=== PATIENT | female | born 1985 | race Caucasian/White ===

== ENCOUNTER 2024-07-09 14:57 | Emergency (ER) | payer BC, SELFPAY ==
[2024-07-09 15:00] VITALS: BP 113/82
--- NOTE | 2024-07-09 15:51 | ED.GENMED ---
History of Present Illness
General
Chief Complaint: Skin Problem
Time Seen by Provider: 07/09/24 15:31
History of Present Illness
History of Present Illness:
39 yo female presents to the Emergency Dept for evaluation of scalp skin lesions ongoing for the past several days, associated with newly developed adenopathy to the posterior ears and upper neck. No fevers. Reports a hx of scalp 'psoriasis'.
Past History
Past History
ED Past Medical History: None, Other and Other
ED Past Surgical History: None, Tonsilectomy and Other
Social History
Tobacco: Former smoker
Personal: Single
Living: with family
Employment: Employed
Review of Systems
Review of Systems
Allergies reviewed?: Yes
All Other Systems: ROS reviewed and negative except as documented in HPI and ROS
Phy Exam
Physical Exam
Physical Exam:
GEN: Well appearing, NAD, WDWN
HEENT: Oral mucosa moist, no scleral icterus. Numerous crusted/erythematous skin lesions to bilateral parietal and occipital scalp. Bilateral post auricular and posterior cervical chain adenopathy
Cardiac: Regular rate
Lung: No respiratory distress, no tachypnea
MSK: No gross deformity or injuries
Skin: Good color, no pallor or jaundice, no rashes
Neuro: AO x3, moves all extremities freely
Psych: Calm, cooperative
Course
Vital Signs
Initial and Last Documented VS:
Initial Vital Signs
Temp Pulse Resp BP Pulse Ox
98.3 F 95 18 113/82 99
07/09/24 15:00 07/09/24 15:00 07/09/24 15:00 07/09/24 15:00 07/09/24 15:00
Last Documented Vital Signs
Temp Pulse Resp BP Pulse Ox
98.3 F 95 18 113/82 99
07/09/24 15:00 07/09/24 15:00 07/09/24 15:00 07/09/24 15:00 07/09/24 15:00
MDM/Problems Addressed
MDM/Problems Addressed:
Likely co-infected seborrheic dermatitis. Will start PO abx and topical antifungals
*Critical Care Note
Total Time (30-74mins, 75-104mins- exclusive of procedures): Not Applicable
ED Attending Note
-
Portions of this chart may have been created with voice recognition software.� Occasional wrong word or��sound alike� substitutions may have occurred due to the inherent limitations of voice recognition software.
Discharge Plan
Departure
Patient Disposition: Home (Routine Discharge)
Date of Disposition: 07/09/24
Time of Disposition: 15:53
Patient with high blood pressure during this ER visit?: No
Discharge Problem:
Cellulitis of head or scalp, Acute seborrheic dermatitis
Instructions: Seborrheic dermatitis, Cellulitis (Skin Infection), Adult (DC)
Prescriptions:
New
doxycycline monohydrate 100 mg capsule
100 mg PO BID 7 Days Qty: 14 0RF
ketoconazole 2 % shampoo
1 applic topical DAILY Qty: 120 0RF
No Action
vitamin A 2,400 mcg Capsule
1 unit PO DAILY
clonazepam 0.5 mg tablet
0.25 mg PO DAILYPRN PRN (Reason: anxiety)
clonazepam 0.5 mg tablet
0.5 mg PO HS
zinc sulfate 50 mg zinc (220 mg) Tablet
50 mg PO DAILY
naproxen sodium [Aleve] 220 mg Tablet
440 mg PO BID PRN (Reason: mild pain)
buprenorphine-naloxone 8-2 mg film
0.5 film buccal TIDPRN PRN (Reason: severe pain)
Eliquis 2.5 mg tablet
2.5 mg PO .SEE BELOW
Patient Comments:
Has not started 2.5 mg BID regimen.
doxycycline hyclate 100 mg tablet
100 mg PO BID Qty: 14 0RF
prednisone 10 mg tablet
10 mg PO DIRECTED Qty: 30 0RF
Rx Instructions:
4 tabs daily x 3 days; 3 tabs daily for 3 days; 2 tabs daily for 3 days; 1 tab daily for 3 days
Referrals:
Nuris Zavaleta CRNP [Family Provider] -
Interventions
Interventions:
*Risk Screen - Suicide Last Done: 07/09/24 15:00
*General Assessment Last Done: 07/09/24 15:00
*Neglect/Abuse Screening Last Done: 07/09/24 15:00
*Nursing Disposition Last Done: 07/09/24 16:01
Discharge Date and Time
Discharge Date/Time: 07/09/24 16:02
Print Language: NORWEGI[place]
== END 2024-07-09 16:02 | disposition home or self-care (01) ==
LOC: EMR 14:57
PROVIDERS: EMERGENCY PHYSICIAN Emergency Medicine; FAMILY PHYSICIAN Nurse Practitioner Adult Health
DX: L03.811 Cellulitis of head [any part, except face] (principal); L21.9 Seborrheic dermatitis, unspecified; Z87.891 Personal history of nicotine dependence
CPT/HCPCS: 99282

== ENCOUNTER 2025-02-24 13:34 | Emergency (ER) | payer BC, SELFPAY ==
[2025-02-24 14:17] LABS: % Basophils 0.6 % (0-2); % Eosinophils 0.8 % (0-6); % Immature Granulocytes 0.1 % (0-0.5); % Lymphocytes 18.1 % (20.5-51.1); % Monocytes 6.3 % (1.7-9.3); % Neutrophils 74.1 % (42.2-75.2); Absolute Eosinophils 0.1 10^3/uL (0-0.7); Absolute Lymphocytes 1.3 10^3/uL (1.2-3.4); Absolute Monocytes 0.5 10^3/uL (0.1-0.6); Absolute Neutrophils 5.3 10^3/uL (1.4-6.5); Hematocrit 38.4 % (37.0-47.0); Hemoglobin 13.2 g/dL (12.0-16.0); Mean Corp Hgb Conc. 34.4 g/dL (33.0-37.0); Mean Corpuscular Hgb 29.7 pg (27.0-31.0); Mean Corpuscular Volume 86.5 fL (81.0-99.0); Nucleated Red Blood Cells % 0 %; Red Blood Cell Count 4.44 10^6/uL (4.20-5.40); Red Cell Dist. Width 12.2 % (11.5-14.5); White Blood Cell Count 7.1 10^3/uL (4.8-10.8)
[2025-02-24 14:19] LABS: HCG, Serum Qualitative Screen Negative
[2025-02-24 14:20] LABS: INR 1.12; PT 14.7 Sec (11.4-14.6)
[2025-02-24 14:24] LABS: ALT (SGPT) 15 U/L (0-35); AST (SGOT) 24 U/L (14-36); Albumin 4.2 g/dl (3.5-5.0); Alkaline Phosphatase 46 U/L (38-126); Blood Urea Nitrogen 10 mg/dl (7-17); Calcium 9.1 mg/dl (8.4-10.2); Carbon Dioxide 24 mmol/L (22-30); Chloride 104 mmol/L (98-107); Glucose 88 mg/dl (70-99); Potassium 4.3 mmol/L (3.5-5.1); Sodium 137 mmol/L (135-145); Total Bilirubin 0.8 mg/dl (0.2-1.3); eGFR > 60.00
[2025-02-24 14:34] LABS: Troponin I < 0.012 ng/ml
[2025-02-24 14:53] LABS: TSH Reflex To Free T4 2.19 uIU/ml (0.47-4.68)
--- NOTE | 2025-02-24 15:32 | ED.GENMED ---
History of Present Illness
General
Chief Complaint: Chest Pain
Source: patient
Exam Limitations: none
Time Seen by Provider: 02/24/25 14:57
Nursing documentation reviewed up to this point in time: agreed with
History of Present Illness
History of Present Illness:
40-year-old female with past medical history of PE on Eliquis, lupus, Crohn's disease who presents to the emergency department for evaluation of palpitations, chest pain, shortness of breath. Patient reports symptoms have been intermittent for
months but she feels generally worsening. She is post to see Dr. Hines for cardiology appointment in April but feels that she cannot wait because of worsening symptoms. She reports that symptoms seem to be worse when she exerts herself but also can
happen randomly. Prominently describes palpitation with more of a chest discomfort and a feeling of breathlessness. She denies any cough, fevers, chills. Denies swelling or pain in her legs. She denies any other complaints. She does have a
history of PE and is supposed to be on Eliquis but reports that because of issues with insurance coverage she has been not compliant for 2 months.
Past History
Past History
ED Past Medical History: None, Other and Other
ED Past Surgical History: None, Tonsilectomy and Other
Social History
Tobacco: Former smoker
Personal: Single
Living: with family
Employment: Employed
Review of Systems
Review of Systems
All Other Systems: ROS reviewed and negative except as documented in HPI and ROS
Constitutional: Denies fever
Respiratory: Reports trouble breathing
Cardiac: Reports chest pain and palpitations; Denies syncope
ABD/GI: Denies abdominal pain, nausea or vomiting
: Denies flank pain
Musculoskeletal: Denies edema, neck pain or back pain
Neurological: Denies headache
Phy Exam
Physical Exam
Physical Exam:
General: Awake, alert, oriented x3; no acute distress
Head: Normocephalic, atraumatic
Eyes: Conjunctiva normal, sclera anicteric
Throat: Airway intact, handling secretions
Neck: Trachea midline, no JVD
Lungs: Clear to auscultation bilaterally, no wheezing, rales, rhonchi no JVD
Heart: Regular rate and rhythm, no murmurs, gallops, or rubs
Abd: Soft, non distended, nontender
Neuro: No gross deficits
Skin: no rash
Extremities: No edema in extremities, equal pulses in all extremities
Scores
Heart Failure Risk
Heart Failure Risk Score: Not Applicable
Heart Score for Chest Pain Patients
STEMI patient?: No
History: Moderately Suspicious
ECG: Nonspecific Repolarization
Age: </= 45 years
Risk Factors: 1 or 2 Risk Factors
Troponin: </= Normal Limit
Heart Score for Chest Pain Patients: 3
Heart Score Risk: 2.5% MACE over next 6 weeks
PE Wells Score
Symptoms of DVT: No
No alternative diagnosis better explains the illness: No
Tachycardia with pulse > 100: No
Immobilization (>=3 days) or surgery within previous 4 weeks: No
Prior history of DVT or pulmonary embolism: Yes
Presence of hemoptysis: No
Presence of malignancy: No
Pulmonary Embolism Risk Score: 1.5
Probability of PE: Pt is low risk
Withdrawal Assessment of Alcohol
Withdrawal Assessment Completed?: Not applicable
Course
Orders/Labs/Results
Orders:
Orders
02/24/25 13:35
ECG [Electrocardiogram (*1)] Urgent
Reason for Study: Chest Pain
EKG- Treatment ONCE
02/24/25 13:36
CR Chest - 2 Views Urgent
Comment:
Reason For Exam: SOB
02/24/25 13:38
Test Result ONCE
02/24/25 13:50
Complete Blood Count/With Diff Urgent
Comprehensive Metabolic Panel Urgent
HCG, Serum Qualitative Screen Urgent
Prothrombin Time Urgent
TSH Reflex To Free T4 Urgent
Troponin I Urgent
02/24/25 15:16
CT Chest PE Study Urgent
Comment:
Reason For Exam: chest pain
02/24/25 17:57
Troponin I Urgent
Abnormal Lab Results
02/24/25
13:50
Lymphocytes % 18.1 L %
(20.5-51.1)
PT 14.7 H Sec
(11.4-14.6)
02/24/25 13:50
02/24/25 13:50
Vital Signs
Initial and Last Documented VS:
Initial Vital Signs
Pulse Resp BP Pulse Ox
67 16 95/64 100
02/24/25 15:48 02/24/25 15:48 02/24/25 15:48 02/24/25 15:48
Last Documented Vital Signs
Temp Pulse Resp BP Pulse Ox
36.9 C 85 16 108/84 100
02/24/25 18:58 02/24/25 18:15 02/24/25 18:15 02/24/25 18:15 02/24/25 18:15
MDM/Problems Addressed
Differential Diagnosis Includes:
Dysrhythmia, PE, ACS, heart failure, pneumothorax, pneumonia, anemia, electrolyte derangement, anxiety
MDM/Problems Addressed:
40-year-old female presents for evaluation of palpitations, chest discomfort and shortness of breath intermittent for months but generally worsening. Vitals and exam as above. She had lab work sent in triage including a CBC and a CMP which showed
no clinically significant abnormalities. She had a troponin sent off which was undetectable. Her hCG is negative. Thyroid studies normal. Chest x-ray done in triage reviewed by me shows no acute disease. Will plan to repeat troponin. Check CT
chest given history of PE and Eliquis noncompliance. Will monitor on telemetry and reassess after the above.
Repeat troponin undetectable. CT chest shows no acute pathology. Patient stable throughout 4+ hour ED observation. No acute events; ambulatory pulse ox and heart rate normal and resting vital signs normal. Stable for discharge, will expedite
cardiology referral via chest pain hotline�I did discuss with cardiology and they indicated they will expedite appointment. Patient comfortable to this plan. We spoke about return precautions in detail and all questions answered.
*Radiology
Radiology exam reviewed: preliminary read by ED provider and radiology read reviewed
*Pulse Oximetry
Patient hypoxic: no
*EKG
Interpreted by ED Provider?: Yes
Heart Rate: 93
Rate: normal
Rhythm: sinus
[place]: normal axis
Interval: normal interval
QRS Pattern: right bundle branch block (Incomplete)
Ischemia: T-wave inversion (Nonspecific ST and T wave abnormalities)
*Critical Care Note
Total Time (30-74mins, 75-104mins- exclusive of procedures): Not Applicable
Data Reviewed
Source: patient and records
Patient Management
Discussion with other providers: Content Designer (Discussed with cardiology)
ED Attending Note
-
Portions of this chart may have been created with voice recognition software.� Occasional wrong word or��sound alike� substitutions may have occurred due to the inherent limitations of voice recognition software.
Discharge Plan
Departure
Patient Disposition: Home (Routine Discharge)
Date of Disposition: 02/24/25
Time of Disposition: 19:03
Patient with high blood pressure during this ER visit?: No
Discharge Problem:
Chest pain, Palpitations
Instructions: Chest Pain CBC Follow Up
Prescriptions:
No Action
vitamin A 2,400 mcg Capsule
1 unit PO DAILY
clonazepam 0.5 mg tablet
0.25 mg PO DAILYPRN PRN (Reason: anxiety)
clonazepam 0.5 mg tablet
0.5 mg PO HS
zinc sulfate 50 mg zinc (220 mg) Tablet
50 mg PO DAILY
naproxen sodium [Aleve] 220 mg Tablet
440 mg PO BID PRN (Reason: mild pain)
buprenorphine-naloxone 8-2 mg film
0.5 film buccal TIDPRN PRN (Reason: severe pain)
Eliquis 2.5 mg tablet
2.5 mg PO .SEE BELOW
Patient Comments:
Has not started 2.5 mg BID regimen.
doxycycline hyclate 100 mg tablet
100 mg PO BID Qty: 14 0RF
prednisone 10 mg tablet
10 mg PO DIRECTED Qty: 30 0RF
Rx Instructions:
4 tabs daily x 3 days; 3 tabs daily for 3 days; 2 tabs daily for 3 days; 1 tab daily for 3 days
doxycycline monohydrate 100 mg capsule
100 mg PO BID 7 Days Qty: 14 0RF
ketoconazole 2 % shampoo
1 applic topical DAILY Qty: 120 0RF
Referrals:
Nuris Zavaleta CRNP [Family Provider] -
Santiago Hines MD [Active] - Call in 1-3 days for appt
Activity Restrictions/Additional Instructions:
Thank you for visiting the Emergency Department at [facility].
1. Please schedule a follow up appointment as directed. Call first thing tomorrow morning to make an appointment.
2. If indicated, please take your medications as instructed and indicated on discharge paperwork.
3. If any of your symptoms do not improve, or persist, or become more severe within 6-12 hours, please return to the emergency department for further care.
4. Please return to the emergency department if you develop a headache, neck pain/stiffness, fever greater than 100.4F, chest pain, shortness of breath, persistent nausea, vomiting, slurred speech, difficulty walking, numbness/tingling, weakness,
signs of infection or any other symptoms that are worrisome to you.
Please call [phone] if you have any questions.
Interventions
Interventions:
*Risk Screen - Suicide Last Done: 02/24/25 13:37
*General Assessment Last Done: 02/24/25 13:37
*Neglect/Abuse Screening Last Done: 02/24/25 13:37
*ED COVID-19 Vaccine History Last Done: 02/24/25 13:37
ED- Cardiac Assessment Last Done: 02/24/25 15:27
Discharge Date and Time
Print Language: [place]
[2025-02-24 15:48] VITALS: BP 95/64
[2025-02-24 18:15] VITALS: BP 108/84
[2025-02-24 18:30] LABS: Troponin I < 0.012 ng/ml
== END 2025-02-24 19:10 | disposition home or self-care (01) ==
LOC: EMR 13:34
PROVIDERS: Emergency Medicine; EMERGENCY PHYSICIAN Emergency Medicine; FAMILY PHYSICIAN Nurse Practitioner Adult Health
DX: R00.2 Palpitations (principal); R07.89 Other chest pain; R06.02 Shortness of breath; I45.19 Other right bundle-branch block; M32.9 Systemic lupus erythematosus, unspecified; J45.909 Unspecified asthma, uncomplicated; Z91.148 Patient's other noncompliance with medication regimen for other reason; Z79.01 Long term (current) use of anticoagulants; Z86.711 Personal history of pulmonary embolism; Z87.01 Personal history of pneumonia (recurrent); Z87.891 Personal history of nicotine dependence; Z88.0 Allergy status to penicillin; Z88.2 Allergy status to sulfonamides; Z88.1 Allergy status to other antibiotic agents; Z91.018 Allergy to other foods
CPT/HCPCS: 99285; 71275; 80053; 84443; 84484; 84703; 85025; 85610; 93005; Q9967

== ENCOUNTER → 2025-03-09 15:06 | Outpatient (REF) | payer BC, SELFPAY | LOC: HWRCS 15:06 | PROVIDERS: ATTENDING PHYSICIAN Internal Medicine Cardiovascular Disease; FAMILY PHYSICIAN Nurse Practitioner Adult Health | DX: R06.02 Shortness of breath (principal); R06.01 Orthopnea; R00.2 Palpitations; R94.31 Abnormal electrocardiogram [ECG] [EKG]; M32.9 Systemic lupus erythematosus, unspecified; Z86.711 Personal history of pulmonary embolism | CPT/HCPCS: 93306 ==

== ENCOUNTER → 2025-03-24 13:30 | Outpatient (REF) | payer BC, SELFPAY | LOC: RCS 13:30 | PROVIDERS: ATTENDING PHYSICIAN Nurse Practitioner; FAMILY PHYSICIAN Nurse Practitioner Adult Health | DX: R07.89 Other chest pain (principal) | CPT/HCPCS: 93017; 93350 ==

== ENCOUNTER 2025-03-27 18:22 | Inpatient (IN) | payer BC, SELFPAY ==
[2025-03-27] VITALS (17 sets, daily range): BP systolic 87–103; BP diastolic 61–74; BMI 22.0
--- NOTE | 2025-03-27 11:29 | ED.GENMED ---
History of Present Illness
General
Chief Complaint: Dizziness
Time Seen by Provider: 03/27/25 11:29
History of Present Illness
History of Present Illness:
TIME OF INITIAL ENCOUNTER: 11:30 AM
HPI: The patient was told to come to the emergency department by her cardiology group. She recently had a stress test that showed [address] depression in the inferior leads but the echo portion was normal. When they notified her of this today,
the patient notified them that she was feeling lightheadedness, shortness of breath, and a general unwell feeling. She also states that she has been having low blood pressure readings.
EXAM:
GENERAL: Healthy in overall appearance, but appears slightly uncomfortable
HEENT: Moist oral mucosa
CARDIOVASCULAR: No murmurs, normal heart rate, regular rhythm, No chest wall tenderness
PULMONARY: No respiratory distress, breath sounds are clear and equal
ABDOMEN: Soft with no peritoneal signs, no tenderness
NEUROLOGIC: Excellent strength all extremities, no coordination deficits
PSYCHIATRIC: Appears somewhat anxious, appropriate mental status, normal insight and judgement
EXTREMITIES: Nontender, no edema, moves all extremities equally
SKIN: Somewhat of a butterfly type of rash on her face consistent with known history of lupus
NUMBER AND COMPLEXITY OF PROBLEMS ADDRESSED AT THE ENCOUNTER
� Chronic conditions affecting care: Has had PE related to lupus
� Acute Exacerbation and/or Progression of Chronic Illness: This is an acute problem
� Differential Diagnosis includes: Anxiety, ACS, PE, dehydration
AMOUNT AND/OR COMPLEXITY OF DATA TO BE REVIEWED AND ANALYZED
� I performed an independent evaluation of and my interpretation is:
EKG: Suspect sinus with rate of 92, RSR prime pattern inferior T wave abnormality
CT:
X-rays: Chest x-ray shows no acute abnormality
Laboratory Studies: D-dimer 0.29, troponin less than 0.012, CBC and chemistries unremarkable
Other:
� Review of other/old records: Stress echo from 03/24/2025 showed normal EF with no regional wall wall motion abnormalities nor evidence of myocardial ischemia but there was [address] depression in the inferior leads with stress
testing
� Clinical information was obtained by an independent historian: I spoke to at bedside
� Prescriptions/Medications Considered but not given:
� Further testing considered but not performed:
RISK OF COMPLICATIONS AND/OR MORBIDITY OR MORTALITY OF PATIENT MANAGEMENT
� Social determinants of health affecting care: Lives at home
� Discussion with other providers: Notified Dr. Gallardo. Hospitalist for admission.
� Escalation of care including admission/observation vs risk of discharge considered: The patient was sent here by her cardiology group. She did have a recent stress echo that was abnormal regarding the stress portion.
ANY OTHER UPDATES:
12:55 PM: I reassessed patient. Despite receiving a liter of fluid, the patient continues to have a general unwell feeling primarily complaining of lightheadedness and weakness. She intermittently has some chest pain but it just comes and go
briefly. D-dimer and troponin are reassuring however there is some inferior coronary concern based on recent stress testing and EKG. She has been having headaches as well.
2:20 PM: I spoke to Dr. Gallardo. They are planning on taking her to the [facility] to take a look at her coronaries and evaluate for pulmonary hypertension however she has several symptoms and they do recommend that hospitalist be involved for
further management.
Past History
Past History
ED Past Medical History: None, Other and Other
ED Past Surgical History: None, Tonsilectomy and Other
Social History
Tobacco: Former smoker
Personal: Single
Living: with family
Employment: Employed
Phy Exam
Physical Exam
Physical Exam:
See HPI
Course
Orders/Labs/Results
Orders:
Orders
03/27/25 11:13
Electrocardiogram (*1) Urgent
Reason for Study: Vertigo / Dizzy
EKG- Treatment ONCE
03/27/25 11:44
0.9% Sodium Chloride 1000 ml [Nss] 1,000 ml IV BOLUS
03/27/25 11:45
Complete Blood Count/With Diff Urgent
D-Dimer Urgent
03/27/25 12:04
Comprehensive Metabolic Panel Urgent
HCG, Serum Qualitative Screen Urgent
Comment: ADD ON
Magnesium Urgent
TSH Reflex To Free T4 Urgent
Comment: ADD ON
Troponin I Urgent
03/27/25 12:32
CR Chest - 2 Views Urgent
Comment:
Reason For Exam: sob
03/27/25 12:55
Add On- LAB Urgent
Tests Added?: tsh reflex fT4
03/27/25 13:22
Echo Follow-up Study Urgent
Reason for Study: Dizziness, R/O pericardial effusion
03/27/25 13:56
Aspirin Chewable [Low Strength Aspirin] 324 mg PO NOW STA
03/27/25 13:59
Add On- LAB Urgent
Tests Added?: hcg qual
Orthostatic Vital Signs As Directed
Orthostatic VS Frequency: BID
03/28/25 06:00
Cortisol, Random IN AM
Abnormal Lab Results
03/27/25 03/27/25
11:45 12:04
Absolute Lymphs (auto) 0.9 L 10^3/uL
(1.2-3.4)
Lymphocytes % 16.1 L %
(20.5-51.1)
Chloride 110 H mmol/L
(98-107)
Glucose 109 H mg/dl
(70-99)
Alkaline Phosphatase 34 L U/L
(38-126)
03/27/25 11:45
03/27/25 12:04
Vital Signs
Initial and Last Documented VS:
Initial Vital Signs
Temp Pulse Resp BP Pulse Ox
36.7 C 95 15 103/71 100
03/27/25 11:14 03/27/25 11:14 03/27/25 11:14 03/27/25 11:14 03/27/25 11:14
Last Documented Vital Signs
Temp Pulse Resp BP Pulse Ox
36.7 C 72 20 98/68 98
03/27/25 11:14 03/27/25 13:45 03/27/25 13:45 03/27/25 13:21 03/27/25 13:45
*Critical Care Note
Total Time (30-74mins, 75-104mins- exclusive of procedures): Not Applicable
ED Attending Note
-
Portions of this chart may have been created with voice recognition software.� Occasional wrong word or��sound alike� substitutions may have occurred due to the inherent limitations of voice recognition software.
Discharge Plan
Departure
Patient Disposition: Admit
Date of Disposition: 03/27/25
Time of Disposition: 14:21
Presentation/result/management discussed w/ accepting MD/DO: Hospitalist
Discharge Problem:
Abnormal cardiovascular stress test
Prescriptions:
No Action
buprenorphine-naloxone 8-2 mg film
1 film buccal TIDPRN PRN (Reason: severe pain)
Eliquis 2.5 mg tablet
2.5 mg PO DAILY
Patient Comments:
Has not started 2.5 mg BID regimen.
clonazepam 1 mg tablet
1 mg PO HSPRN PRN (Reason: sleep/anxiety)
hydroxychloroquine [Plaquenil] 200 mg Tablet
200 mg PO BID
Referrals:
Nuris Zavaleta CRNP [Family Provider] -
Interventions
Interventions:
*Risk Screen - Suicide Last Done: 03/27/25 11:14
*General Assessment Last Done: 03/27/25 11:14
*Neglect/Abuse Screening Last Done: 03/27/25 11:14
*ED- Fall Risk Assessment Last Done: 03/27/25 11:30
*ED COVID-19 Vaccine History Last Done: 03/27/25 11:30
ED- Neurological Assessment Last Done: 03/27/25 11:30
ED- Cardiac Assessment Last Done: 03/27/25 11:30
Discharge Date and Time
Print Language: WOL[place]
[2025-03-27] MEDS: NSS 1000 IV (11:48)
[2025-03-27 12:07] LABS: % Basophils 0.7 % (0-2); % Eosinophils 1.1 % (0-6); % Immature Granulocytes 0.2 % (0-0.5); % Lymphocytes 16.1 % (20.5-51.1); % Monocytes 6.7 % (1.7-9.3); % Neutrophils 75.2 % (42.2-75.2); Absolute Eosinophils 0.1 10^3/uL (0-0.7); Absolute Lymphocytes 0.9 10^3/uL (1.2-3.4); Absolute Monocytes 0.4 10^3/uL (0.1-0.6); Absolute Neutrophils 4.3 10^3/uL (1.4-6.5); Hematocrit 40.2 % (37.0-47.0); Hemoglobin 13.9 g/dL (12.0-16.0); Mean Corp Hgb Conc. 34.6 g/dL (33.0-37.0); Mean Corpuscular Hgb 30.2 pg (27.0-31.0); Mean Corpuscular Volume 87.2 fL (81.0-99.0); Nucleated Red Blood Cells % 0 %; Red Blood Cell Count 4.61 10^6/uL (4.20-5.40); Red Cell Dist. Width 13.1 % (11.5-14.5); White Blood Cell Count 5.7 10^3/uL (4.8-10.8)
[2025-03-27 12:08] LABS: D-Dimer 0.29 ug/mlFEU (0.00-0.50)
[2025-03-27 12:34] LABS: ALT (SGPT) 20 U/L (0-35); AST (SGOT) 23 U/L (14-36); Albumin 3.9 g/dl (3.5-5.0); Alkaline Phosphatase 34 U/L (38-126); Blood Urea Nitrogen 9 mg/dl (7-17); Calcium 8.7 mg/dl (8.4-10.2); Carbon Dioxide 27 mmol/L (22-30); Chloride 110 mmol/L (98-107); Estimated Creatinine Clearance 104 ml/min; Glucose 109 mg/dl (70-99); Magnesium 1.7 mg/dl (1.6-2.3); Potassium 3.9 mmol/L (3.5-5.1); Sodium 140 mmol/L (135-145); Total Bilirubin 0.8 mg/dl (0.2-1.3); Total Protein 7.1 g/dl (6.3-8.2); eGFR > 60.00
[2025-03-27 12:46] LABS: Troponin I < 0.012 ng/ml
--- NOTE | 2025-03-27 13:20 | CON.CAR ---
Addendum entered and electronically signed by Earle Gallardo MD 03/27/25 14:58:
I saw and examined the patient.
The CHILD AND FAMILY SERVICES SPECIALIST's note was reviewed and I agree with the note.
Primary director clinical applications Dr. Tse
40-year-old woman with history of lupus, Crohn's disease, pulmonary embolism (Eliquis stopped in the past due to cost) who has had intermittent chest discomfort over the last 6 months. Random episodes that are sometimes brief lasting seconds
otherwise last 3 to 5 minutes and sometimes have lasted longer symptoms can be noticed with activity. In addition she has had exertional shortness of breath this is only been going on the last couple months there are 3 stories in her house and she
has to take rests in order to go up multiple flights of stairs. Also feels a bit more short of breath laying flat. No orthopnea or lower extremity edema in addition to the above she has some intermittent palpitations which are brief sometimes feel
like skipped beats sometimes like flutters. In addition to the above she has generalized fatigue she also has episodes of lightheadedness and sometimes feels recent near syncopal. These episodes occur upon standing. She has been seen as an
outpatient and echocardiogram with normal left ventricular function earlier this month she also had a nuclear perfusion stress test during which she had reproduction in her chest discomfort which slowly improved in recovery. She also had ST
depressions. Based on the above there were plans for outpatient cardiac catheterization but patient was not feeling well today with fatigue and episodes of lightheadedness and episodes of chest discomfort. Currently chest pain-free ECG without
ischemic changes.
-Chest discomfort.-Etiology unclear. At times pattern is atypical for coronary ischemia but the patient does report exertional chest discomfort also has had exertional shortness of breath. In addition she had reproduction of her symptoms during a
stress echocardiogram with ischemic ECG changes but no clear echocardiogram evidence of myocardial ischemia. Issues were reviewed with her primary director clinical applications Dr. Villalpando. Due to her persistent symptoms of unclear etiology and reproduction of
exertional symptoms during her stress test plan is for cardiac catheterization both right and left to evaluate for obstructive coronary artery disease. Will also assess for pulmonary hypertension. Procedure was reviewed with patient and her
also discussed with interventional cardiology. Plan for cardiac catheterization
- Shortness of breath. Ongoing symptoms for couple months. Exact etiology unclear. Will await results of cardiac catheterization. Of note patient has had pulmonary embolism in the past. If no clear etiology noted on cardiac catheterization then
would consider pulmonary consultation.
- Lightheadedness. Patient with episodes which sound orthostatic in nature. Reports relatively low blood pressure. She reports adequate fluid intake. Patient is thin but denies having recent weight loss. She received hydration in the ER with 1
L of fluid. Systolic blood pressure currently 100
- Check cortisol.
-Adequate hydration
- Monitor orthostatics
- Generalized fatigue. Multiple factors may contribute. Exact etiology unclear. Will assess cardiac issues as noted above but I do not think this would explain all of her symptoms. Cortisol ordered. In addition would defer to hospitalist for
further assessment of the symptoms
- Abnormal ECG/WPW noted on ECG. Patient's had intermittent palpitations but without significant arrhythmia noted on rhythm*monitor. Not clear if patient had all of her usual symptoms while being monitored. Patient is already had an
echocardiogram as well. Plan for outpatient EP evaluation. Patient already has appointment in place
- Lupus.-Patient follows up with rheumatology and [place]. Unclear how much of this relates to the above symptoms. Additional assessment by primary team
- Crohn's.-Denies GI symptoms. However it is possible some of her chest symptoms could also be GI in nature. Has not followed up at [facility] in a while. Would recommend she has additional GI follow-up
Original Note:
Consultation
Consultation Request
Date/Time Consultation Requested: 03/27/2025 13:00
Date/Time Consultation Performed: 03/27/2025 13:20
Requesting Provider: Dr. Caputo
Performing Provider: MORGAN Felix for Dr. Gallardo
Reason for Consultation: Dizziness, abnormal stress ECG
Medical History
-
Chief Complaint: Dizziness
History of Present Illness:
Fabi Salazar is a 40-year-old female (known to Dr. Tse, her primary director clinical applications), with prior PE (not on apixaban as it is cost prohibitive), Crohn's, abnormal EKG, and vaping who presents to the ER with a chief complaint of dizziness. She was
called by MORGAN Landa to discuss stress echo findings. Cardiac catheterization was recommended however on the phone she felt unwell. She reported she was very dizzy, short of breath, and felt like she was going to blackout along with
significant fatigue. This started after her stress test. She was told to present to the emergency department. Her dizziness occurs when she stands. She has been significantly fatigued to where she cannot go to work. Her shortness of breath is
worse with her palpitations. This does not feel like a lupus flare.
Past Medical History
Past Medical History: Other (Prior PE, SLE, Crohn's disease)
Past Surgical History: Tonsilectomy
Social History
Tobacco: Vaping
Personal:
Living: With Family
Family History
Family History: Reviewed & Not Pertinent
Allergies / Home Medications
Allergy/AdvReac Type Severity Reaction Status Date / Time
cephalexin [From Keflex] Allergy Severe extreme Verified 02/24/25 13:36
joint &
muscle pain
Sulfa (Sulfonamide Allergy Severe septic Verified 02/24/25 13:36
Antibiotics) shock
vancomycin Allergy Severe extreme Verified 02/24/25 13:36
joint &
muscle pain
amoxicillin Allergy Pharmacy Verified 02/24/25 13:36
to Review
Cephalosporins Allergy Pharmacy Verified 02/24/25 13:36
to Review
penicillin V Allergy Pharmacy Verified 02/24/25 13:36
to Review
Penicillins Allergy Pharmacy Verified 02/24/25 13:36
to Review
sulfamethoxazole Allergy Sepsis Verified 02/24/25 13:36
[From Bactrim]
trimethoprim [From Bactrim] Allergy Sepsis Verified 02/24/25 13:36
nuts Allergy Pharmacy Uncoded 02/24/25 13:36
to Review
�Medication �Instructions �Recorded �Confirmed �Type
apixaban 2.5 mg tablet (Eliquis) 2.5 mg PO .SEE BELOW 01/21/24 01/21/24 History
buprenorphine 8 mg-naloxone 2 mg 0.5 film buccal TIDPRN PRN severe 01/21/24 01/21/24 History
sublingual film pain
clonazepam 0.5 mg tablet 0.25 mg PO DAILYPRN PRN anxiety 01/21/24 01/21/24 History
clonazepam 0.5 mg tablet 0.5 mg PO HS 01/21/24 01/21/24 History
doxycycline hyclate 100 mg tablet 100 mg PO BID #14 tabs 01/21/24 Rx
naproxen sodium 220 mg tablet 440 mg PO BID PRN mild pain 01/21/24 01/21/24 History
(Aleve)
prednisone 10 mg tablet 10 mg PO DIRECTED #30 tabs 01/21/24 Rx
vitamin A 2,400 mcg capsule 1 unit PO DAILY Supplement 01/21/24 01/21/24 History
zinc sulfate 50 mg zinc (220 mg) 50 mg PO DAILY 01/21/24 01/21/24 History
tablet
doxycycline monohydrate 100 mg 100 mg PO BID 7 days #14 caps 07/09/24 Rx
capsule
ketoconazole 2 % shampoo 1 applic topical DAILY #120 mL 07/09/24 Rx
Review of Systems
-
History Source: Patient
All other systems: Negative unless noted
Constitutional: Fatigue
EENT: No Symptoms
Respiratory: No Symptoms
Cardiac: Palpitations
Abdomen/GI: No Symptoms
: No Symptoms
Musculoskeletal: No Symptoms
Skin: No Symptoms
Neurological: Dizzy, Headache and Weakness
Endocrine: No Symptoms
Hematologic/Lymphatic: No Symptoms
Physical Exam
Vital Signs
Temp Pulse Resp BP Pulse Ox
98.1 F 84 22 102/70 99
03/27/25 11:14 03/27/25 12:00 03/27/25 11:45 03/27/25 12:00 03/27/25 12:00
Lab Results
03/27/25 11:45
03/27/25 12:04
Troponin I < 0.012 ng/ml 03/27/25 12:04
Physical Exam
General: Well Developed, Well Nourished and Comfortable
HEENT: Normocephalic, Anicteric and Moist Mucous Membranes
Respiratory: Clear and Non Labored Respirations
Cardiac: S1/S2 and Regular Rhythm; Negative Peripheral Edema
Breast: Deferred by me
GI: Soft, Non Tender, Non Distended and Normal Bowel Sounds
Rectal: Deferred by Provider
Genito-urinary: No Costovertebral Tender
Musculoskeletal: No Clubbing, No Cyanosis and No Edema
Skin: Other (flushed)
Neuro: AO x 3
Hematologic/Lymphatic: No Lymphadenopathy
Psych: Calm
Impression / Plan
-
I/P: 40F with SLE, prior DVT/PE, (not on apixaban as it is cost prohibitive), Crohn's, abnormal EKG, and vaping who presents to the ER with a chief complaint of extreme fatigue
Primary director clinical applications: Dr. Tse
Abnormal stress echocardiogram
- [address] depression in inferior leads on stress echo
- With associated fatigue, dizziness, and shortness of breath
- Start rosuvastatin (also with SLE)
- Coronary angiography today, ASA 324 mg ordered
WPW
- Palpitations and shortness of breath at home
- No significant findings on outpatient cardiac monitoring (7 days)
- Outpatient EP eval already arranged
Fatigued, significant
- Adrenal? Check cortisol
Dizziness
- Seems orthostatic, orthostatic vital signs ordered
Prior PE/DVT, not on oral anticoagulation
SLE, self discontinued Plaquenil
Crohn's disease
Data Reviewed
-
Medical Tests (Nuc Med, Echo etc): Report Reviewed by me
Labs: Labs Reviewed by me
Old Records: Reviewed
[2025-03-27 14:37] LABS: HCG, Serum Qualitative Screen Negative
--- NOTE | 2025-03-27 14:37 | HPS.HSE ---
Family Physician
-
Family Physician: Nuris Zavaleta
Chief Complaint
-
Dizziness, lightheadedness, shortness of breath
History of Present Illness
40-year-old female sent to ER by cardiology due to abnormal stress test with [address] depression in inferior leads. They reportedly notified her of this today and she states she has been having lightheadedness shortness of breath and feeling unwell
she also reports hypotension at home on blood pressure readings increased over the past few days however over the past few months. She reports she has history of PE x 2 last 1 being 5 years ago she has been on oral Eliquis until 02/25/2025 when they
increased the gabriel to $800. She does have history of lupus anticoagulant factor and to other clotting factors she cannot recall name of. She has not followed up with her financial services assistant in [place] I advised her we would cover her here with
subcutaneous heparin but she would prefer not as it león in her stomach she states that she has some Eliquis tablets left at home. I advised her not to take any while inpatient until discussed with cardiology and I can try to set up case
management for her however it is a holiday weekend. There is plan for possible cardiac cath today to evaluate for pulmonary hypertension
She has past medical history of PE x 2 last 1 5 years ago history of lupus anticoagulant factor +2 other clotting factors unknown name, ex-smoker, asthma, lupus, with chronic pain on chronic buprenorphine/naloxone twice daily one half strip RA, WPW,
anxiety.
Medical History
Past Medical History
Past Medical History: Reports Other
Additional Past Medical History:
PE x 2 last 1- 5 years ago
history of lupus anticoagulant factor +2 other clotting factors unknown name
ex-smoker
asthma
lupus
with chronic pain on chronic buprenorphine/naloxone twice daily one half strip RA
WPW
anxiety.
Past Surgical History: Reports Other
Additional Past Surgical History:
Tonsillectomy adenoidectomy age 8
Right ear canal repair July 2021
Social History
Tobacco: Vaping (Several times a month)
Alcohol: Occasional (Once a month)
Personal:
Living: With Family ()
Family History
Family History: Other (Parents healthy, 1 brother MVA 2002 1 sister anxiety)
Allergies / Home Medications
Allergies reflects when Allergies were last updated in [employer].
Home Medications with original date entered in [employer]
Allergy/Medication List:
Allergies
Allergy/AdvReac Type Severity Reaction Status Date / Time
cephalexin [From Keflex] Allergy Severe extreme Verified 02/24/25 13:36
joint &
muscle pain
Sulfa (Sulfonamide Allergy Severe septic Verified 02/24/25 13:36
Antibiotics) shock
vancomycin Allergy Severe extreme Verified 02/24/25 13:36
joint &
muscle pain
amoxicillin Allergy Pharmacy Verified 02/24/25 13:36
to Review
Cephalosporins Allergy Pharmacy Verified 02/24/25 13:36
to Review
penicillin V Allergy Pharmacy Verified 02/24/25 13:36
to Review
Penicillins Allergy Pharmacy Verified 02/24/25 13:36
to Review
sulfamethoxazole Allergy Sepsis Verified 02/24/25 13:36
[From Bactrim]
trimethoprim [From Bactrim] Allergy Sepsis Verified 02/24/25 13:36
nuts Allergy Pharmacy Uncoded 02/24/25 13:36
to Review
Home Medications
apixaban 2.5 mg tablet (Eliquis) 2.5 mg PO DAILY 01/21/24
buprenorphine 8 mg-naloxone 2 mg sublingual film 1 film buccal TIDPRN PRN severe pain 01/21/24
clonazepam 1 mg tablet 1 mg PO HSPRN PRN sleep/anxiety 03/27/25
hydroxychloroquine 200 mg tablet (Plaquenil) 200 mg PO BID 03/27/25
Review of Systems
-
History Source: Patient and Family ( [place])
A 12 point ROS was completed and negative except as noted: Yes
Constitutional: Denies Fever
Respiratory: Reports Trouble Breathing; Denies Cough
Cardiac: Reports Diaphoresis and Palpitations; Denies Chest Pain
Abdomen/GI: Denies Abdominal Pain, Nausea, Vomiting, Diarrhea, Constipated, Bloody Stools or Black Stools
: Denies Dysuria, Frequency, Flank Pain or Incontinence
Musculoskeletal: Denies Joint Pain or Edema
Skin: Reports Rash (Chronic rash to face history of lupus); Denies Itching
Neurological: Reports Dizzy; Denies Headache or Weakness
Endocrine: Reports No Symptoms
Hematologic/Lymphatic: Reports No Symptoms
Psych: Reports Calm
Physical Exam
Vital Signs
Vital Signs
Temp Pulse Resp BP Pulse Ox
98.1 F 72 20 98/68 98
03/27/25 11:14 03/27/25 13:45 03/27/25 13:45 03/27/25 13:21 03/27/25 13:45
Physical Exam
General: Comfortable and Conversant; No Fever or Chills
HEENT: NormoCephalic, Anicteric, Moist mucous membranes, PERRLA, [place] Conjunctivae and No Ptosis
Respiratory: Clear; No Wheezes, Rales, Rhonchi or Crackles
Cardiac: S1/S2 and Regular Rhythm; No Murmur, Rub, Gallop or Peripheral Edema
Breast: Deferred by me
GI: Soft, Non Tender, Non Distended, Normal Bowel Sounds and No Hepatosplenomegaly
Rectal: Deferred by Provider
Genito-urinary: Deferred by me
Musculoskeletal: No Clubbing, No Cyanosis and No Edema
Skin: Warm, Dry and Other (Chronic butterfly rash to face); No Rash or Jaundice
Neuro: AO x 3, No Motor Deficits, Nonfocal/grossly intact, Cranial Nerves Intact and No Sensory Deficits; No Slurred Speech, Facial Droop, Tremors or Sedated
Psych: Calm
Laboratory Results
-
03/27/25 11:45
03/27/25 12:04
Laboratory Results
Total Bilirubin 0.8 mg/dl (0.2-1.3) 03/27/25 12:04
AST 23 U/L (14-36) 03/27/25 12:04
ALT 20 U/L (0-35) 03/27/25 12:04
Alkaline Phosphatase 34 U/L (38-126) L 03/27/25 12:04
Troponin I < 0.012 ng/ml 03/27/25 12:04
Data Reviewed
-
Lab Data: Labs Reviewed by me
Impression/Plan
-
Impression/plan:
Admit to IVU
#Abnormal stress test with ST depression inferior leads
- Consult Dr. Gallardo
- Plan for cardiac cath today evaluation pulmonary HTN
#Anxiety
-Continue clonazepam 1 mg at bedtime as needed
#RA Dx age 21
#History of lupus Dx age 21
-Used to be on long-term steroids stopped approximately 5 years ago
-Continue Plaquenil 200 mg p.o. twice daily
#Chronic pain
-Patient takes buprenorphine/naloxone takes twice daily one half strip
Although was prescribed 1 film buccal 3 times daily as needed severe pain
#HX PE x 2 last 1 ,5 years ago history of lupus anticoagulant factor +2 other clotting factors unknown name
- Patient stopped Eliquis 02/25/2025 due to cost increased to $800
- She is declining subcutaneous heparin as it león in her stomach
- Made patient aware risk of clot development given history, upcoming cath and risk for PE/
- She prefers to take a couple doses of her Eliquis when she arrives home and then follow-up with her financial services assistant in [place] she currently cannot recall his name
- Consult case management for anticoagulation pricing
DVT prophylaxis
SCDs as patient is declining subcu heparin
Full code
[2025-03-27] MEDS: LOW STRENGTH ASPIRIN 324 MG PO (15:03)
[2025-03-27 15:12] LABS: TSH Reflex To Free T4 1.01 uIU/ml (0.47-4.68)
--- NOTE | 2025-03-27 15:30 | W.PN.UPDATE ---
Update Note
Progress Note Update
I saw and examined the patient.
The PERFORMANCE REPORTER's note was reviewed and I agree with the plan with the following comments:
Ms. Salazar is a 40-year-old male with a medical history of SLE, lupus anticoagulant (and 2 other coagulopathies she does not remove the name of), prior PE x 2 (on Eliquis until 02/25/2025 the gabriel dramatically increased and she stopped taking it),
Crohn's disease, Azfqg-Orpkparbh-Llkar syndrome, chronic pain syndrome (on Suboxone), and anxiety who presented at the urging of her outpatient cardiology office due to abnormal nuclear perfusion stress test. Apparently she experienced chest pain
during her stress test which resolved with rest. She has been experiencing intermittent chest pain, shortness of breath, hypotension, and lightheadedness over the past few months but no clear etiology.
In the ED, she was mildly hypotensive but stable. She is breathing comfortably and saturating appropriately on room air. She was afebrile and not tachycardic. Chest x-ray showed no acute abnormalities. Labs were generally unremarkable including
undetectable troponin x 1. Her EKG showed normal sinus rhythm with controlled ventricular rate, Newmn-Huhdznrjd-Kaicu pattern, and lateral ST-T wave abnormalities similar to previous. She was given full-strength aspirin and a bolus of IV fluids.
She is being admitted for further evaluation and management of chest pain. Plan is for cardiac cath later this afternoon.
General: No Apparent Distress, Comfortable and Conversant
HEENT: NormoCephalic, Moist mucous membranes, Atraumatic
Respiratory: Clear and Non Labored Respirations
Cardiac: S1/S2 and Regular Rhythm; No Rub or Gallop
GI: Soft, Non Tender, Non Distended and Normal Bowel Sounds
Musculoskeletal: No Edema, no deformity
Skin: Warm and dry, malar rash
: NO Beckre
Neuro: Awake, Alert, Nonfocal/grossly intact
Psych: Calm and Intact Judgment/Insight
Chest pain:
- Continue telemetry monitoring
- Plan for cardiac catheterization today, further guidance from cardiology
- If no abnormalities on coronary angiography will pursue further workup potential including CT angiography to rule out PE as she has known coagulopathy and has been off anticoagulation for some time
Coagulopathy:
- History of lupus anticoagulant and 2 other reported coagulopathies patient does not remember the names of
- Stop taking Eliquis approximately 1 month ago due to gabriel increase
- Will ask for case management guidance regarding options for affordable anticoagulation
DVT prophylaxis: SCDs for now, Eliquis if affordable
CODE STATUS: Full code
Total time spent on today's encounter was 40 minutes
--- NOTE | 2025-03-27 17:15 | CM ---
priced elijeovany- $760/month- she has commericial insur and can use the $10 copay card- placed in her red dc folder-
also priced- brilinta (generic) $8/month- pasugrel $8/mo- xarelto $70 monthj
--- NOTE | 2025-03-27 18:10 | ITS.CL.PN ---
Automatic Spinning Lathe Setter - Procedure Note
Procedure
Procedure Note:
CARDIAC CATHETERIZATION REPORT
Date of Procedure: 03/27/2025
Referring: Dr. Earle Gallardo MD
Indication: anginal chest pain
PROCEDURE(S)
1. right heart catheterization
2. left heart catheterization
3. coronary angiography
ACCESS
1. 6F right radial artery (closure: radial band)
2. 5F right antecubital vein (closure: manual hemostasis)
CATHETERS
1. 5F [place]
2. 6F JR4
3. 6F JL3.5
MODERATE SEDATION: 30 minutes of moderate sedation was utilized. An independent medical billing service was present to assist with and help manage the patient's level of consciousness and physiologic status.
HEMODYNAMIC DATA
LV 99/10 (EDP 15) mmHg
AO 95/67 (mean 78) mmHg
RA 11 mmHg
RV 30/7 (EDP 12) mmHg
PA 24/14 (mean 18) mmHg
PCWP 15 mmHg
SaO2 99.6%
SvO2 73.5%
Hb 12.1 g/dL
CO/CI 4.59/2.91 L/min/m2
SVR 1167 dsc*-5
PVR 0.6 Wood units
CORONARY ANGIOGRAPHY
Dominance: Right
LM: Short vessel without disease.
LAD: Large vessel giving rise to a single moderate caliber diagonal branch. There is no coronary artery disease.
LCx: Moderate caliber vessel giving rise to a moderate caliber OM1 and several small distal OM branches. There is no coronary artery disease.
RCA: Large vessel giving rise to a moderate caliber RPDA and moderate caliber RPL branch. There is no coronary artery disease.
RADIATION: dose 115 mGy; DAP 9 Gy*cm2; fluoroscopy time 4.1 min
CONCLUSIONS
1. Normal coronary arteries and a right dominant system
2. Mildly elevated biventricular filling pressures, normal pulmonary artery pressure, and normal cardiac output. Of note, she received 1 L of fluids in the emergency department shortly before her cath, likely contributing to her mildly elevated
filling pressures.
RECOMMENDATION: Further workup for etiology of chest pain and shortness of breath not related to epicardial coronary artery disease
Copy to: Dr. Musa Tse DO (mold sprayer)
Signed: Vinayak Pinon MD, PhD
--- NOTE | 2025-03-27 18:41 | PTCARENOTE ---
Rec'd report from Serg in the physical laboratory assistant; rec'd pt AAOX3, anxious, but w/no c/o CP or SOB at this time. Pt's VSS w/HR 80's & BP low but close to pt's baseline at 89/67. Pt w/ R groin w/dressing C/D/I & R radial site w/R band on both w/no signs or
symptoms of bleeding or hematoma. Discussed plan of care w/pt incl bedrest for 2 hrs post procedure until 1999 & prob D/C at 2200 this evening as long as pt is stable. Pt w/call montoya within reach & plan of care ongoing.
[2025-03-27] MEDS: SUBUTEX 4 MG SL (20:44)
[2025-03-27] MEDS: PLAQUENIL 200 MG PO (20:45)
[2025-03-27] MEDS: KLONOPIN 1 MG PO (20:53)
[2025-03-28 04:11] VITALS: BP 78/48
[2025-03-28 04:13] VITALS: BP 80/51
--- NOTE | 2025-03-28 05:00 | PTCARENOTE ---
Assumed care on pt at 1900, aaox3, no c/o pain or SOB. r band to R radial removed at 2100, no bleeding, bruising or swelling from the site. pt c/o generalized weakness and discomfort, but stating that is her baseline d/t her lupus hx. Pt asking if
she would be able to d/c at 2200 as she was told by , checked with exhibition organiser BARBERING TEACHER and made pt aware on plan of care, both pt and at bedside in agreement. Bp's running low with the lowest 78/48, SR on the monitor HR 70's. pox 96-99% RA. On
call BARBERING TEACHER made aware of low BP's, 500 cc NSS bolus ordered and administering. Call montoya within reach, will monitor.
[2025-03-28 05:09] LABS: % Basophils 0.3 % (0-2); % Eosinophils 3.7 % (0-6); % Immature Granulocytes 0.3 % (0-0.5); % Lymphocytes 30.1 % (20.5-51.1); % Monocytes 10.8 % (1.7-9.3); % Neutrophils 54.8 % (42.2-75.2); Absolute Eosinophils 0.1 10^3/uL (0-0.7); Absolute Lymphocytes 1.1 10^3/uL (1.2-3.4); Absolute Monocytes 0.4 10^3/uL (0.1-0.6); Absolute Neutrophils 2.1 10^3/uL (1.4-6.5); Hematocrit 29.8 % (37.0-47.0); Hemoglobin 10.2 g/dL (12.0-16.0); Mean Corp Hgb Conc. 34.2 g/dL (33.0-37.0); Mean Corpuscular Hgb 30.5 pg (27.0-31.0); Mean Corpuscular Volume 89.2 fL (81.0-99.0); Nucleated Red Blood Cells % 0 %; Red Blood Cell Count 3.34 10^6/uL (4.20-5.40); Red Cell Dist. Width 13.1 % (11.5-14.5); White Blood Cell Count 3.8 10^3/uL (4.8-10.8)
--- NOTE | 2025-03-28 05:20 | PTCARENOTE ---
Hgb from 13.9 to 10.2 with this morning labs, no s/s active bleeding noted, R groin and R radial dsg CDI, no bruising or swelling noted. control valve mechanic SOLDERING TECHNICIAN made aware, no new orders at this time.
[2025-03-28 05:27] LABS: ALT (SGPT) 19 U/L (0-35); AST (SGOT) 26 U/L (14-36); Albumin 3.1 g/dl (3.5-5.0); Alkaline Phosphatase 20 U/L (38-126); Blood Urea Nitrogen 8 mg/dl (7-17); Calcium 7.9 mg/dl (8.4-10.2); Carbon Dioxide 24 mmol/L (22-30); Chloride 114 mmol/L (98-107); Estimated Creatinine Clearance 104 ml/min; Glucose 97 mg/dl (70-99); HDL Cholesterol 38 mg/dl; LDL Cholesterol, Calculated 49 mg/dl; Magnesium 1.7 mg/dl (1.6-2.3); Potassium 3.9 mmol/L (3.5-5.1); Sodium 141 mmol/L (135-145); Total Bilirubin 0.9 mg/dl (0.2-1.3); Total Cholesterol 98 mg/dl (50-199); Total Protein 5.9 g/dl (6.3-8.2); Triglyceride 55 mg/dl (10-149); Very Low Density Lipoprotein 11 mg/dl (0-30); eGFR > 60.00
[2025-03-28] MEDS: NSS 500 IV (05:55)
[2025-03-28 06:00] VITALS: BMI 22.2
[2025-03-28 06:18] VITALS: BP 81/55; BP 91/58; BP 91/61; PULSE 74; PULSE 80; PULSE 91
[2025-03-28 06:20] VITALS: BP 91/61
[2025-03-28 06:21] VITALS: BP 91/58
--- NOTE | 2025-03-28 06:45 | W.PN.CD ---
Addendum entered and electronically signed by Earle Gallardo MD 03/28/25 06:57:
would recheck hb prior to resuming Eliquis
Original Note:
Today's Communication / Plan
-
repeat CBC
check ccortisol
Patietn would like to go home
if labs stable then reasonable [facility]EP, , rheumtology GI and pulm
Impression / Plan
-
I/P: 40F with SLE, prior DVT/PE, (not on apixaban as it is cost prohibitive), Crohn's, abnormal EKG, and vaping who presents to the ER with a chief complaint of extreme fatigue
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
Chest pain
- patietn with intermittent CP for months and had CP on stress. Outpatient plan for cath and then patient came into ER
- cath yesterday - no evidenceof CAD, no pulmonary HTN. Normal filling pressures. Note patient had received 1 liter IVF in ER prior to [facility]
- Appear CP non cardiac
- consider use of pepcid or PPI . Also she has Cohns and has not ahd folow up with GI
.
SOB. exertional SOB. No clear cardiac cause
- can consdier pulmonary evaluation as outpatient
H/O PE
- resume Eliquis.
- reportedly stopped due to cost but case management reviewed and it appears affordable. Patient appears agreeable to resume
WPW
- Palpitations and shortness of breath at home
- No significant findings on outpatient cardiac monitoring (7 days)
- Outpatient EP eval already arranged
Fatigued, may be multifacotrial
- Check cortisol
Dizziness
- Seems orthostatic,tends to run relatively low BP
-cortisol
- adequate hydrationa and liberal salt intake
decrease HB . No evidecneof bleeding . ? accuracy of lab. repeat
Prior PE/DVT, not on oral anticoagulation
SLE, self discontinued Plaquenil
Crohn's disease
Physical Exam
Vital Signs/Labs
Vital Signs
Temp Pulse Resp BP Pulse Ox
98.0 F 72 18 98/66 96
03/28/25 04:11 03/28/25 02:15 03/28/25 04:11 03/27/25 22:00 03/28/25 04:11
03/26/25 03/27/25 03/28/25
06:59 06:59 06:59
Actual Weight 56.9 kg
03/28/25 04:21
03/28/25 04:21
Magnesium 1.7 mg/dl (1.6-2.3) 03/28/25 04:21
Triglycerides 55 mg/dl (10-149) 03/28/25 04:21
LDL Cholesterol, Calc 49 mg/dl 03/28/25 04:21
VLDL Cholesterol, Calc 11 mg/dl (0-30) 03/28/25 04:21
HDL Cholesterol 38 mg/dl 03/28/25 04:21
LAB Results
03/27/25 03/27/25
11:45 12:04
Troponin I Cancelled < 0.012
Physical Exam
Constitutional: No acute distress
Cardiovascular: Rhythm & rate is regular
Respiratory: Respiratory effort normal
GI: Soft
Other: Other ([facility] fine)
Data Reviewed
-
Date of Service: March 28, 2025
Medical Decision Making: Reviewed Test Results and Review of Case with other Provider (reviewe with nurse)
Medical Tests (PFT, Pathology etc): Report Reviewed by me
Labs: Labs Reviewed by me
[2025-03-28] MEDS: SUBUTEX 4 MG SL (07:50)
[2025-03-28] MEDS: PLAQUENIL 200 MG PO (07:50)
[2025-03-28 08:28] LABS: Hematocrit 33.5 % (37.0-47.0); Hemoglobin 11.4 g/dL (12.0-16.0); Mean Corpuscular Hgb 30.1 pg (27.0-31.0); Mean Corpuscular Volume 88.4 fL (81.0-99.0); Mean Platelet Volume 11.4 fL (7.4-10.4); Red Cell Dist. Width 13.1 % (11.5-14.5); White Blood Cell Count 4.6 10^3/uL (4.8-10.8)
[2025-03-28 08:34] LABS: Cortisol, Random 8.6 ug/dl
--- NOTE | 2025-03-28 09:36 | W.DCSUMMARY ---
Discharge Summary
Discharge Data
Date of Admission: 03/27/25
Date of Discharge: 03/28/25
Total time spent discharging patient (in min): 40
-
Pending Results: No
Hospital Course
Ms. Salazar is a 40-year-old male with a medical history of SLE, lupus anticoagulant (and 2 other coagulopathies she does not remove the name of), prior PE x 2 (on Eliquis until 02/25/2025 the gabriel dramatically increased and she stopped taking it),
Crohn's disease, Ydzok-Yojpdxttu-Ixmut syndrome, chronic pain syndrome (on Suboxone), and anxiety who presented at the urging of her outpatient cardiology office due to abnormal nuclear perfusion stress test. Apparently she experienced chest pain
during her stress test which resolved with rest. She has been experiencing intermittent chest pain, shortness of breath, hypotension, and lightheadedness over the past few months but no clear etiology.
In the ED, she was mildly hypotensive but stable. She was breathing comfortably and saturating appropriately on room air. She was afebrile and not tachycardic. Chest x-ray showed no acute abnormalities. Labs were generally unremarkable including
undetectable troponin x 1. Her EKG showed normal sinus rhythm with controlled ventricular rate, Pmngj-Ujwpqujzh-Ngrol pattern, and lateral ST-T wave abnormalities similar to previous. She was given full-strength aspirin and a bolus of IV fluids.
She was admitted for further evaluation and management of chest pain.
She underwent cardiac catheterization in the afternoon of 03/27/2025 revealing no obstructive coronary artery disease. She tolerated the procedure well. She remained hemodynamically stable. She was encouraged to continue anticoagulation with
Eliquis which she still has at home. She was given a coupon for Eliquis which should help make it more affordable in the future. 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
arrangements can be made to maintain anticoagulation, which is critical for her. Her vital signs were stable and she was not hypoxic. She will need ongoing workup of her presenting symptoms but does not require further inpatient evaluation and
patient also prefers to continue workup in the outpatient setting. She was medically stable for discharge to home. She will need close outpatient follow-up with hematology, cardiology, and her with her primary care physician.
General: No Apparent Distress, Comfortable and Conversant
HEENT: NormoCephalic, Moist mucous membranes, Atraumatic
Respiratory: Clear and Non Labored Respirations
Cardiac: S1/S2 and Regular Rhythm; No Rub or Gallop
GI: Soft, Non Tender, Non Distended and Normal Bowel Sounds
Musculoskeletal: No Edema, no deformity
Skin: Warm and dry, malar rash
: NO Becker
Neuro: Awake, Alert, Nonfocal/grossly intact
Psych: Calm and Intact Judgment/Insight
Discharge Plan
-
Patient Disposition: Home (Routine Discharge)
Discharge Diagnosis/Procedures: Chest pain
Diet: Regular
Activity: As tolerated
Activity Restrictions/Additional Instructions:
Ms. Salazar is a 40-year-old male with a medical history of SLE, lupus anticoagulant (and 2 other coagulopathies she does not remove the name of), prior PE x 2 (on Eliquis until 02/25/2025 the gabriel dramatically increased and she stopped taking it),
Crohn's disease, Obdal-Svyqbeijv-Obehi syndrome, chronic pain syndrome (on Suboxone), and anxiety who presented at the urging of her outpatient cardiology office due to abnormal nuclear perfusion stress test. Apparently she experienced chest pain
during her stress test which resolved with rest. She has been experiencing intermittent chest pain, shortness of breath, hypotension, and lightheadedness over the past few months but no clear etiology.
In the ED, she was mildly hypotensive but stable. She was breathing comfortably and saturating appropriately on room air. She was afebrile and not tachycardic. Chest x-ray showed no acute abnormalities. Labs were generally unremarkable including
undetectable troponin x 1. Her EKG showed normal sinus rhythm with controlled ventricular rate, Gwrfv-Kevyzjofv-Tmlwx pattern, and lateral ST-T wave abnormalities similar to previous. She was given full-strength aspirin and a bolus of IV fluids.
She was admitted for further evaluation and management of chest pain.
She underwent cardiac catheterization in the afternoon of 03/27/2025 revealing no obstructive coronary artery disease. She tolerated the procedure well. She remained hemodynamically stable. She was encouraged to continue anticoagulation with
Eliquis which she still has at home. She was given a coupon for Eliquis which should help make it more affordable in the future. 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
arrangements can be made to maintain anticoagulation, which is critical for her. Her vital signs were stable and she was not hypoxic. She will need ongoing workup of her presenting symptoms but does not require further inpatient evaluation and
patient also prefers to continue workup in the outpatient setting. She was medically stable for discharge to home. She will need close outpatient follow-up with hematology, cardiology, and her with her primary care physician.
Referrals:
Nuris Zavaleta CRNP [Family Provider] -
Santiago Hines MD [Active] - 04/06/25 3:00 pm
Prescriptions:
Continued
buprenorphine-naloxone 8-2 mg film
1 film buccal TIDPRN PRN (Reason: severe pain)
Eliquis 2.5 mg tablet
2.5 mg PO DAILY
Patient Comments:
Has not started 2.5 mg BID regimen.
clonazepam 1 mg tablet
1 mg PO HSPRN PRN (Reason: sleep/anxiety)
hydroxychloroquine [Plaquenil] 200 mg Tablet
200 mg PO BID
Discharge Orders:
Discharge Patient (As Directed); Ordered 03/28/25
Ordered By: Stanford Stallings
Discharge Date and Time
Print Language: UKRAINIAN
[2025-03-28 11:22] VITALS: BP 98/64
[2025-03-28 15:19] LABS: Red Blood Cell Count 3.81 10^6/uL (4.20-5.40)
--- NOTE | 2025-03-31 09:14 | CM ---
no dc planning needs noted. dc to home when cleared medically.
== END 2025-03-28 12:05 | disposition home or self-care (01) | DRG 287 ==
LOC: IVU 18:22
PROVIDERS: Clinical Nurse Specialist Family Health; Student in an Organized Health Care Education/Training Program; ADMITTING PHYSICIAN Internal Medicine; EMERGENCY PHYSICIAN Emergency Medicine; FAMILY PHYSICIAN Nurse Practitioner Adult Health; OTHER PHYSICIAN Internal Medicine Cardiovascular Disease
PROC: B2111ZZ Fluoroscopy of Multiple Coronary Arteries using Low Osmolar Contrast (ICD-10-PCS; 2025-03-27)
PROC: 4A023N8 Measurement of Cardiac Sampling and Pressure, Bilateral, Percutaneous Approach (ICD-10-PCS; 2025-03-27)
DX: I45.6 Pre-excitation syndrome (principal); K50.90 Crohn's disease, unspecified, without complications; D68.62 Lupus anticoagulant syndrome; F11.20 Opioid dependence, uncomplicated; R07.9 Chest pain, unspecified; R42 Dizziness and giddiness; R94.39 Abnormal result of other cardiovascular function study; G89.4 Chronic pain syndrome; M32.9 Systemic lupus erythematosus, unspecified; J45.909 Unspecified asthma, uncomplicated; M06.9 Rheumatoid arthritis, unspecified; F41.9 Anxiety disorder, unspecified; I95.9 Hypotension, unspecified; Z87.891 Personal history of nicotine dependence; Z79.01 Long term (current) use of anticoagulants; Z86.711 Personal history of pulmonary embolism; Z88.0 Allergy status to penicillin; Z88.2 Allergy status to sulfonamides; Z88.1 Allergy status to other antibiotic agents; Z91.018 Allergy to other foods; Z86.718 Personal history of other venous thrombosis and embolism
CPT/HCPCS: 71046; 80053; 80061; 82533; 83735; 84443; 84484; 84703; 85025; 85027; 85379; 87070; 93005; 93460; 96360; 99152; 99153; 99285; C1894; Q9967

== ENCOUNTER 2025-06-05 09:38 | Day surgery (SDC) | payer BC, SELFPAY ==
[2025-06-03 08:00] VITALS: BMI 20.6
--- NOTE | 2025-06-05 10:49 | ITS.CL.IMPLP ---
Fermentation Engineer - Implant Loop
Implant Loop
Procedure Report:
Procedure: Insertion of Loop Recorder.�
40 years old woman with palpitations and WPW with tachycardia and negative exhaustive work up is recommended an ILR placement.
Date of the procedure: 06/05/25
Procedure Physician: Gm Mulligan MD [facility]
Indication: Arrhythmia.
Description of the procedure:
Patient was brought to the holding area after informed consent was obtained from the patient. The time out was performed immediately before the procedure.
The left parasternal chest area was prepped and draped in sterile fashion with chlorhexidine prep x 3 times. Lidocaine 1% was injected subcutaneously for local anesthesia. The loop recorder was tunneled and then injected into the subcutaneous
tissue. The tunneling tool was removed leaving the loop recorder in place. The dermis was closed with 4-0 Monocryl and steristrips and a pressure Tegaderm dressing was placed. There were no immediate complications.
Post procedure, the device was interrogated and showed good detectable P and R waves.
There were no immediate complications.
Device:
LINQII; Model: [id number]; Serial #:[id number]
R wave amplitude: 0.56 mV
Final Programming:
��������������� Tachycardia Detection: >182 bpm for 16 beats
��������������� Bradycardia Detection: 30 bpm for 12 beats, Asystole for 5 seconds.
��������������� Atrial fibrillation detection: On with > 10 min duration
Conclusion:
Successful insertion of loop recorder.
Recommendation:
Routine post-insert loop care.
== END 2025-06-05 11:22 | disposition home or self-care (01) ==
LOC: CATH 09:38
PROVIDERS: ATTENDING PHYSICIAN Internal Medicine Cardiovascular Disease; FAMILY PHYSICIAN Nurse Practitioner Adult Health; OTHER PHYSICIAN Internal Medicine Cardiovascular Disease
DX: Z09 Encounter for follow-up examination after completed treatment for conditions other than malignant neoplasm (principal); I45.6 Pre-excitation syndrome; Z79.01 Long term (current) use of anticoagulants; M32.9 Systemic lupus erythematosus, unspecified
CPT/HCPCS: 33285; 93005; C1764

== ENCOUNTER 2025-08-19 10:47 | Emergency (ER) | payer BC, SELFPAY ==
[2025-08-19 10:48] VITALS: BP 108/76
--- NOTE | 2025-08-19 11:25 | ED.GENMED ---
History of Present Illness
<Todd Camarena MD - Last Filed: 08/19/25 11:35>
General
Chief Complaint: Abdominal Pain
Source: patient
Exam Limitations: none
Time Seen by Provider: 08/19/25 11:19
Nursing documentation reviewed up to this point in time: agreed with
History of Present Illness
History of Present Illness:
Patient with history of Crohn's disease, diagnosed in 2017 and currently off treatment since 2018, presents to ED secondary to lower abdominal pain associated with multiple episodes of bloody diarrhea over the past 24 hours. Denies fever or chills.
Denies nausea or vomiting. Denies trauma. Denies back pain. Denies recent change in medications or diet. Denies recent travel. Denies sick contact. Denies dizziness. Denies chest pain or palpitations. Patient states that she was taking a
biologic for her Crohn's disease, but when she moved, she could not obtain GI physician to continue her medication. However, fortunately, patient has not had any abdominal symptoms since then
Past History
<Todd Camarena MD - Last Filed: 08/19/25 11:35>
Past History
ED Past Medical History: None, Other and Other
ED Past Surgical History: None, Tonsilectomy and Other
Social History
Tobacco: Former smoker
Personal: Single
Living: with family
Employment: Employed
Review of Systems
<Todd Camarena MD - Last Filed: 08/19/25 11:35>
Review of Systems
Allergies reviewed?: Yes
All Other Systems: ROS reviewed and negative except as documented in HPI and ROS
Constitutional: Reports no symptoms; Denies fever
ABD/GI: Reports abdominal pain, diarrhea and bloody stools; Denies nausea or vomiting
Musculoskeletal: Reports no symptoms
Skin: Reports no symptoms
Neurological: Reports no symptoms
Phy Exam
<Todd Camarena MD - Last Filed: 08/19/25 11:35>
Physical Exam
Physical Exam:
Physical Exam
General: mild painful distress, not acutely ill. afebrile
Head: nc/at. eomi
Neck: supple. no meningeal signs.
Heart: s1/s2 regular rate and rhythm
Lungs: no acute respiratory distress. clear bilaterally
Abdomen: normal bowel sounds. mild LLQ/suprapubic tenderness to palpation
Neuro: alert and oriented x 3. no focal neurological deficits
Skin: no rash
Psychiatric: well kept. interactive and cooperative
Extremities: no edema. no calf tenderness.
Course
<Todd Camarena MD - Last Filed: 08/19/25 11:35>
Orders/Labs/Results
Orders:
Orders
08/19/25 11:26
CT Abd/pel W Iv And Oral Contr Urgent
Comment:
Reason For Exam: lower abd pain with hx chrons dz
Iohexol [Omnipaque] See Protocol PO NOW STA
08/19/25 11:28
Morphine Sulfate 2 mg IV NOW STA
Pantoprazole [Protonix IV] 40 mg IV NOW STA
08/19/25 11:30
0.9% Sodium Chloride 1000 ml [Nss] 1,000 ml IV BOLUS
08/19/25 12:07
Complete Blood Count/With Diff Urgent
Comprehensive Metabolic Panel Urgent
HCG, Serum Qualitative Screen Urgent
Comment: ADD ON
Magnesium Urgent
08/19/25 13:45
Morphine Sulfate 2 mg IV NOW STA
08/19/25 13:57
Stool Culture Urgent
BUD Source: Feces/Stool
Specimen Description:
Date Specimen was Collected: 08/19/25
Time Specimen was Collected: 12:23
08/19/25 14:50
Add On- LAB Urgent
Tests Added?: serum preg qual
08/19/25 14:52
Add On- LAB Urgent
Tests Added?: serum preg
08/19/25 18:14
Add On - Microbiology Urgent
Tests Added?: c-diff please
08/19/25 18:16
C difficile Antigen & Toxins Routine
BUD Source: ST
Specimen Description:
Comment: Add on by Nancie Medina, DO
Abnormal Lab Results
08/19/25
12:07
RBC 3.89 L 10^6/uL
(4.20-5.40)
Hgb 11.4 L g/dL
(12.0-16.0)
Hct 34.7 L %
(37.0-47.0)
MCHC 32.9 L g/dL
(33.0-37.0)
Absolute Lymphs (auto) 0.8 L 10^3/uL
(1.2-3.4)
Lymphocytes % 14.7 L %
(20.5-51.1)
Monocytes % 10.3 H %
(1.7-9.3)
BUN 6 L mg/dl
(7-17)
Creatinine 0.5 L mg/dL
(0.6-1.0)
Alkaline Phosphatase 36 L U/L
(38-126)
08/19/25 12:07
08/19/25 12:07
Vital Signs
Initial and Last Documented VS:
Initial Vital Signs
Temp Pulse Resp BP Pulse Ox
98.4 F 89 20 108/76 100
08/19/25 10:48 08/19/25 10:48 08/19/25 10:48 08/19/25 10:48 08/19/25 10:48
Last Documented Vital Signs
Temp Pulse Resp BP Pulse Ox
98.4 F 84 16 80/52 99
08/19/25 14:03 08/19/25 14:03 08/19/25 14:03 08/19/25 14:30 08/19/25 14:30
<Nancie Medina, - Last Filed: 08/19/25 20:18>
Orders/Labs/Results
Orders:
Orders
08/19/25 11:26
CT Abd/pel W Iv And Oral Contr Urgent
Comment:
Reason For Exam: lower abd pain with hx chrons dz
Iohexol [Omnipaque] See Protocol PO NOW STA
08/19/25 11:28
Morphine Sulfate 2 mg IV NOW STA
Pantoprazole [Protonix IV] 40 mg IV NOW STA
08/19/25 11:30
0.9% Sodium Chloride 1000 ml [Nss] 1,000 ml IV BOLUS
08/19/25 12:07
Complete Blood Count/With Diff Urgent
Comprehensive Metabolic Panel Urgent
HCG, Serum Qualitative Screen Urgent
Comment: ADD ON
Magnesium Urgent
08/19/25 13:45
Morphine Sulfate 2 mg IV NOW STA
08/19/25 13:57
Stool Culture Urgent
BUD Source: Feces/Stool
Specimen Description:
Date Specimen was Collected: 08/19/25
Time Specimen was Collected: 12:23
08/19/25 14:50
Add On- LAB Urgent
Tests Added?: serum preg qual
08/19/25 14:52
Add On- LAB Urgent
Tests Added?: serum preg
08/19/25 18:14
Add On - Microbiology Urgent
Tests Added?: c-diff please
08/19/25 18:16
C difficile Antigen & Toxins Routine
BUD Source: ST
Specimen Description:
Comment: Add on by Nancie Medina DO
Abnormal Lab Results
08/19/25
12:07
RBC 3.89 L 10^6/uL
(4.20-5.40)
Hgb 11.4 L g/dL
(12.0-16.0)
Hct 34.7 L %
(37.0-47.0)
MCHC 32.9 L g/dL
(33.0-37.0)
Absolute Lymphs (auto) 0.8 L 10^3/uL
(1.2-3.4)
Lymphocytes % 14.7 L %
(20.5-51.1)
Monocytes % 10.3 H %
(1.7-9.3)
BUN 6 L mg/dl
(7-17)
Creatinine 0.5 L mg/dL
(0.6-1.0)
Alkaline Phosphatase 36 L U/L
(38-126)
08/19/25 12:07
08/19/25 12:07
Vital Signs
Initial and Last Documented VS:
Initial Vital Signs
Temp Pulse Resp BP Pulse Ox
98.4 F 89 20 108/76 100
08/19/25 10:48 08/19/25 10:48 08/19/25 10:48 08/19/25 10:48 08/19/25 10:48
Last Documented Vital Signs
Temp Pulse Resp BP Pulse Ox
98.4 F 84 16 80/52 99
08/19/25 14:03 08/19/25 14:03 08/19/25 14:03 08/19/25 14:30 08/19/25 14:30
<Todd Camarena MD - Last Filed: 08/19/25 11:35>
*Pulse Oximetry
SaO2: 100
Oxygen Mode of Delivery: Room air
<Nancie Medina DO - Last Filed: 08/19/25 20:18>
*Pulse Oximetry
Patient hypoxic: no
*Critical Care Note
Total Time (30-74mins, 75-104mins- exclusive of procedures): Not Applicable
<Nancie Medina DO - Last Filed: 08/19/25 20:18>
Update Note
Update Note:
Attending signout note (Nancie Medina DO)
13:45 -assuming care of patient, 40-year-old female presenting for irregular bowel movements for the past 5 days with crampy abdominal pain. Prior history of Crohn's disease, however has not had follow-up for a few years. She is not on any
medications and has not been seeing GI. Notes that she has not had any issues for about 2 years. Vital signs stable in the ER. Labs are relatively unremarkable. No leukocytosis. At time of signout, pending CT abdomen pelvis, drinking oral
contrast for better visualization of patient's bowels
18:00 -delay in CT due to no status. negative and CT without acute pathology. Does show constipation which could be contributing to symptoms. No indication for antibiotics or admission. No sign of Crohn's flare. Patient will
need outpatient GI follow-up. Stool culture and C. difficile sample sent. However low suspicion, formed stool. In addition, no sign of colitis on CT and unremarkable laboratory analysis. Patient requesting pain medication. Did explain that pain
medication is likely to worsen her constipation, however she would like to proceed with the prescription. Will provide information for GI. Return precautions discussed and patient verbalized understanding
Pharmacy called upon discharge, noted the patient is on Suboxone. This reason prescription for Percocet canceled
ED Attending Note
<Todd Camarena MD - Last Filed: 08/19/25 11:35>
-
Portions of this chart may have been created with voice recognition software.� Occasional wrong word or��sound alike� substitutions may have occurred due to the inherent limitations of voice recognition software.
Discharge Plan
Departure
Patient Disposition: Home (Routine Discharge)
Date of Disposition: 08/19/25
Time of Disposition: 18:01
Patient with high blood pressure during this ER visit?: No
Condition: Good
Discharge Problem:
Constipation, Abdominal pain
Instructions: Constipation in adults - ED (DC), Abdominal Pain
Prescriptions:
New
polyethylene glycol 3350 [Miralax] 17 gram/dose powder
4 g PO ONCE Qty: 119 0RF
oxycodone-acetaminophen [Endocet] 5-325 mg tablet
1 tab PO Q8H PRN (Reason: Pain) Qty: 6 0RF
No Action
buprenorphine-naloxone 8-2 mg film
1 film buccal TIDPRN PRN (Reason: severe pain)
clonazepam 1 mg tablet
1 mg PO HSPRN PRN (Reason: sleep/anxiety)
hydroxychloroquine [Plaquenil] 200 mg Tablet
200 mg PO BID
vitamin A 2,400 mcg Capsule
1,200 mcg PO DAILY
calcium phos,dibas-vitamin D3 77-400 mg-unit Tablet
1 tab PO DAILY
Eliquis 5 mg Tablet
5 mg PO BID
Referrals:
Nuris Zavaleta CRNP [Family Provider, General]
Clara Quintero MD [Active, Gastroenterology]
Activity Restrictions/Additional Instructions:
You were seen in the emergency department for abdominal pain
You were found to have reassuring laboratory analysis and CT of your abdomen and pelvis. Recommend follow-up with a GI doctor. We also recommend taking MiraLAX for constipation
Please follow-up closely with your primary care physician.
Return to the emergency department for any worsening of your symptoms, or any development of chest pain, difficulty breathing, abdominal pain with persistent vomiting and inability to tolerate food or liquid by mouth (concern for dehydration),
weakness, headache or confusion, fever greater than 100.4, or any additional symptoms that are concerning to you.
Thank you for choosing [facility].
Interventions
Interventions:
*Risk Screen - Suicide Last Done: 08/19/25 10:48
*General Assessment Last Done: 08/19/25 10:48
*Neglect/Abuse Screening Last Done: 08/19/25 10:48
*ED- Fall Risk Assessment Last Done: 08/19/25 14:04
Discharge Date and Time
Discharge Date/Time: 08/19/25 19:03
Print Language: INDONESIAN
[2025-08-19 12:15] LABS: Hematocrit 34.7 % (37.0-47.0); Hemoglobin 11.4 g/dL (12.0-16.0); Mean Corp Hgb Conc. 32.9 g/dL (33.0-37.0); Mean Corpuscular Volume 89.2 fL (81.0-99.0); Nucleated Red Blood Cells % 0 %; Platelet Count 154 10^3/uL (130-400); Red Cell Dist. Width 13.0 % (11.5-14.5)
[2025-08-19] MEDS: MORPHINE SULFATE 2 MG IV ×2 (12:21→13:54)
[2025-08-19] MEDS: OMNIPAQUE 50 ML PO (12:21)
[2025-08-19] MEDS: NSS 1000 IV (12:22)
[2025-08-19] MEDS: PROTONIX IV 40 MG IV (12:22)
[2025-08-19 12:33] LABS: ALT (SGPT) 16 U/L (0-35); AST (SGOT) 24 U/L (14-36); Albumin 4.0 g/dl (3.5-5.0); Alkaline Phosphatase 36 U/L (38-126); Blood Urea Nitrogen 6 mg/dl (7-17); Calcium 8.8 mg/dl (8.4-10.2); Carbon Dioxide 26 mmol/L (22-30); Chloride 106 mmol/L (98-107); Glucose 82 mg/dl (70-99); Magnesium 1.7 mg/dl (1.6-2.3); Potassium 4.5 mmol/L (3.5-5.1); Sodium 139 mmol/L (135-145); Total Protein 7.3 g/dl (6.3-8.2); eGFR > 60.00
[2025-08-19 13:55] VITALS: BP 96/62
[2025-08-19 14:00] VITALS: BP 94/66
[2025-08-19 14:30] VITALS: BP 80/52
[2025-08-19 16:01] LABS: HCG, Serum Qualitative Screen Negative
== END 2025-08-19 19:03 | disposition home or self-care (01) ==
LOC: EMR 10:47
PROVIDERS: Emergency Medicine; EMERGENCY PHYSICIAN Student in an Organized Health Care Education/Training Program; FAMILY PHYSICIAN Nurse Practitioner Adult Health
DX: K59.00 Constipation, unspecified (principal); K50.911 Crohn's disease, unspecified, with rectal bleeding; Z87.891 Personal history of nicotine dependence
CPT/HCPCS: 99284; 96374; 96375; 96376; 96361; 74177; 80053; 83735; 84703; 85025; 87045; 87046; 87324; 87427; 87449; Q9967

== ENCOUNTER → 2025-09-17 09:44 | Outpatient (REF) | payer BC, SELFPAY | LOC: HWRAD 09:44 | PROVIDERS: ATTENDING PHYSICIAN Obstetrics & Gynecology Gynecology; FAMILY PHYSICIAN Nurse Practitioner Adult Health | DX: R10.20 Pelvic and perineal pain unspecified side (principal) | CPT/HCPCS: 76830; 76856 ==